=== PATIENT | female | born 1990 | race Caucasian/White ===

== ENCOUNTER 2019-11-24 10:26 | Emergency (ER) | payer OTHER ==
[~2019-11-24] VITALS: Ht 170.2 cm; Wt 54.9 kg
[~2019-11-24 10:26] MED LIST: ACCUNEB SO1.25 MG/1 INH; ACETAMINOPHEN-1 EAC1 PO; AURALGAN OTIC S14 ML OT; AZITHROMYCIN 2250 MG PO; CLEOCIN HCL300 MG PO; CORTISPORIN OTI10 ML OTIC; DARVOCET-N 1001 EACH PO; FLEXERIL PO; HYDROCODON-ACE1 EAC7 PO; IBUPROFEN 800800 M1 PO; IBUPROFEN 800800 MG PO; IRON325 PO; LIDOCAINE VISC100 ML SWISH&SPIT; MECLIZINE HCL25 M1 PO; MEDROLDOSEPACK PO; NOHOMEMEDICATIONS; NORCO 5-325 TA1 EAC1 PO; NORCO 5-325 TA1 EACH PO; TAMIFLU6 MG/1 ML PO; XANAX 0.5 MG0.5 MG PO; ZPAK PO
[2019-11-24 10:27] VITALS: BP 119/77
[2019-11-24] MEDS ORDERED: NAPROSYN500 MG PO (11:19)
[2019-11-24] MEDS ORDERED: NORCO 5-325 TA1 EAC1 PO (11:19)
== END 2019-11-24 11:20 | disposition home or self-care (01) ==
LOC: ER 10:26
DX: K01.1 Impacted teeth (principal); K08.89 Other specified disorders of teeth and supporting structures; J45.909 Unspecified asthma, uncomplicated; F41.9 Anxiety disorder, unspecified; Z88.1 Allergy status to other antibiotic agents; Z88.5 Allergy status to narcotic agent; Z88.8 Allergy status to other drugs, medicaments and biological substances